=== PATIENT | male | born 1950 | race African-American/Black ===

== ENCOUNTER 2016-05-02 13:48 | Emergency (ER) | payer BC ==
--- NOTE | 2016-05-02 14:18 | ER Document Report ---
ED Medical Screen (RME) - General Chief Complaint: Testicular Swelling Stated Complaint: SWOLLEN TESTICLE Notes: Patient states that he was seen by at primary care physician at [facility] on Thursday because he noticed blood in his urine. Patient states he thinks he may have taken too much Coumadin. Noticed left testicular swelling yesterday, pain is intermittent. States he had blood drawn and sent to [place] yesterday to check his Coumadin level. States he is no longer seeing blood in the urine and came to the hospital to have the testicular swelling checked out. he states that his primary wanted him to have a CAT scan, but could not get scheduled with [facility] until Thursday. PCP tried to get a stat CT scan placed but was unable. Patient is unsure of what the CT scan was for I have greeted and performed a rapid initial assessment of this patient. A comprehensive ED assessment and evaluation of the patient, analysis of test results and completion of the medical decision making process will be conducted by additional ED providers. TRAVEL OUTSIDE OF THE [place] IN LAST 30 DAYS: No - Related Data Allergies/Adverse Reactions: IVP Dye Allergy (Uncoded 05/02/16 14:11) Past Medical History - Social History Chew tobacco use (# tins/day): No Frequency of alcohol use: None Drug Abuse: None Renal/ Medical History: Denies: Hx Peritoneal Dialysis Physical Exam - Vital signs Vitals: Temp Pulse Resp BP Pulse Ox 98.7 F 108 H 16 141/78 H 96 05/02/16 13:54 05/02/16 13:54 05/02/16 13:54 05/02/16 13:54 05/02/16 13:54 - General General appearance: Appears well, Alert In distress: None Course - Vital Signs Vital signs: Temp Pulse Resp BP Pulse Ox 98.7 F 108 H 16 141/78 H 96 05/02/16 13:54 05/02/16 13:54 05/02/16 13:54 05/02/16 13:54 05/02/16 13:54
[2016-05-02] MEDS ORDERED: CIPROFLOXACIN HCL 500 MG TABLET PO ONE (16:03)
[2016-05-02 16:18] LABS: ABSOLUTE LYMPHOCYTES (AUTO) 1.4 10^3/uL (0.5-4.7); ABSOLUTE MONOCYTES (AUTO) 1.7 10^3/uL (0.1-1.4); ABSOLUTE NEUT (AUTO) 8.7 10^3/uL (1.7-8.2); BASOPHILS % (AUTO) 0.4 % (0-2); EOSINOPHILS % (AUTO) 0.2 % (0-6); HEMATOCRIT 42.2 % (37.9-51.0); HGB HCT DIFFERENCE -0.2; LYMPHOCYTES % (AUTO) 11.5 % (13-45); MEAN CORPUSCULAR HEMOGLOBIN 29.2 pg (27.0-33.4); MEAN CORPUSCULAR HGB CONC 33.3 g/dL (32.0-36.0); MEAN CORPUSCULAR VOLUME 88 fl (80-97); MONOCYTES % (AUTO) 14.1 % (3-13); RED BLOOD COUNT 4.81 10^6/uL (4.35-5.55); SEGMENTED NEUTROPHILS % (AUTO) 73.8 % (42-78); WHITE BLOOD COUNT 11.8 10^3/uL (4.0-10.5)
[2016-05-02 16:23] LABS: APPEARANCE,URINE CLOUDY; BILIRUBIN,URINE NEGATIVE (NEGATIVE); GLUCOSE, URINE NEGATIVE (NEGATIVE); KETONES,URINE NEGATIVE (NEGATIVE); LEUKOCYTE ESTERASE,URINE LARGE (NEGATIVE); NITRITE,URINE POSITIVE (NEGATIVE); PROTEIN,URINE 30 mg/dL (NEGATIVE); URINE SPECIFIC GRAVITY 1.023; UROBILINOGEN,URINE NEGATIVE mg/dL (<2.0)
[2016-05-02 16:25] LABS: PROTHROMBIN TIME 16.8 SEC (11.4-15.4)
[2016-05-02 16:42] LABS: ALANINE AMINOTRANSFERASE 30 U/L (21-72); ALKALINE PHOSPHATASE 66 U/L (38-126); ANION GAP 16 (5-19); ASPARTATE AMINO TRANSFERASE 23 U/L (17-59); BLOOD UREA NITROGEN 15 mg/dL (7-20); CALCIUM 9.2 mg/dL (8.4-10.2); CARBON DIOXIDE 21 mmol/L (22-30); CHLORIDE 105 mmol/L (98-107); GLUCOSE 121 mg/dL (75-110); POTASSIUM 4.1 mmol/L (3.6-5.0); SODIUM 141.5 mmol/L (137-145); TOTAL PROTEIN 7.3 g/dL (6.3-8.2)
--- NOTE | 2016-05-02 16:55 | ER Document Report ---
ED General - General Chief Complaint: Testicular Swelling Stated Complaint: SWOLLEN TESTICLE TRAVEL OUTSIDE OF THE [place] IN LAST 30 DAYS: No - HPI Patient complains to provider of: left testicle swelling Notes: Patient coming in for evaluation of testicles swelling. Patient also states having some fevers and chills her last few days. Patient is currently visiting from [facility]. Patient states history of PE and is currently on Coumadin patient states approximately 3-4 days ago started having low blood in his urine call his PCP at [place] and was told to stop taking his Coumadin. Patient did recently go to a local urgent care where has INR checked and found to be subtherapeutic at 0.8. Otherwise patient has no other complaints. Denies any penile discharge denies any lesions on the penile shaft. Denies any trauma to the area - Related Data Allergies/Adverse Reactions: IVP Dye Allergy (Uncoded 05/02/16 14:11) Past Medical History - Social History Smoking Status: Former Smoker Chew tobacco use (# tins/day): No Frequency of alcohol use: None Drug Abuse: None Family History: Reviewed & Not Pertinent Patient has suicidal ideation: No Patient has homicidal ideation: No Renal/ Medical History: Denies: Hx Peritoneal Dialysis Review of Systems - Review of Systems Constitutional: No symptoms reported EENT: No symptoms reported Cardiovascular: No symptoms reported Respiratory: No symptoms reported Gastrointestinal: No symptoms reported Genitourinary: No symptoms reported Male Genitourinary: Testicular pain Musculoskeletal: No symptoms reported Skin: No symptoms reported Hematologic/Lymphatic: No symptoms reported Neurological/Psychological: No symptoms reported -: Yes All other systems reviewed and negative Physical Exam - Vital signs Vitals: Temp Pulse Resp BP Pulse Ox 98.7 F 108 H 16 141/78 H 96 05/02/16 13:54 05/02/16 13:54 05/02/16 13:54 05/02/16 13:54 05/02/16 13:54 Interpretation: Normal - General General appearance: Appears well, Alert - HEENT Head: Normocephalic, Atraumatic Eyes: Normal Pupils: PERRL - Respiratory Respiratory status: No respiratory distress Chest status: Nontender Breath sounds: Normal Chest palpation: Normal - Cardiovascular Rhythm: Regular Heart sounds: Normal auscultation Murmur: No - Abdominal Inspection: Normal Distension: No distension Bowel sounds: Normal Tenderness: Nontender Organomegaly: No organomegaly - Genitourinary Inspection: No: Normal - Patient has enlargement of the left testicle [place] twice the size of the right Tenderness: No: Nontender - Tenderness to palpation of the pack follow-up testicle. Cremasteric reflex: Normal - Back Back: Normal, Nontender - Extremities General upper extremity: Normal inspection, Nontender, Normal color, Normal ROM , Normal temperature General lower extremity: Normal inspection, Nontender, Normal color, Normal ROM , Normal temperature, Normal weight bearing. No: John's sign - Neurological Neuro grossly intact: Yes Cognition: Normal Orientation: AAOx4 [place] Coma Scale Eye Opening: Spontaneous [place] Coma Scale Verbal: Oriented [place] Coma Scale Motor: Obeys Commands [place] Coma Scale Total: 15 Speech: Normal Motor strength normal: LUE, RUE, LLE, RLE Sensory: Normal - Psychological Associated symptoms: Normal affect, Normal mood - Skin Skin Temperature: Warm Skin Moisture: Dry Skin Color: Normal Course - Re-evaluation Re-evalutation: 05/02/16 19:16 Patient's ultrasound and examination is consistent with epididymitis patient's urinalysis does show signs of infection. Patient's Coumadin is still subtherapeutic. Because of the patient traveling and is driving himself back to [facility] a did recommend patient restart his Coumadin I did educate patient a very long discussion that his INR level may elevate due to the antibiotic. Patient will be started on ciprofloxacin. Patient was encouraged to follow-up with his doctor Thursday upon return to repeat his INR. Patient was given a copy of laboratory results and ultrasound results with a CD. Patient urine will be sent for culture. - Vital Signs Vital signs: Temp Pulse Resp BP Pulse Ox 99.5 F 100 18 134/94 H 99 05/02/16 17:17 05/02/16 17:17 05/02/16 17:17 05/02/16 17:17 05/02/16 17:17 - Laboratory Result Diagrams: 05/02/16 15:53 05/02/16 15:53 Laboratory results interpreted by me: 05/02/16 05/02/16 05/02/16 15:53 15:53 15:53 WBC 11.8 H Lymphocytes % 11.5 L Monocytes % 14.1 H Absolute Neutrophils 8.7 H Absolute Monocytes 1.7 H PT 16.8 H Carbon Dioxide 21 L Glucose 121 H Urine Protein Urine Blood Urine Nitrite Ur Leukocyte Esterase 05/02/16 15:53 WBC Lymphocytes % Monocytes % Absolute Neutrophils Absolute Monocytes PT Carbon Dioxide Glucose Urine Protein 30 H Urine Blood MODERATE H Urine Nitrite POSITIVE H Ur Leukocyte Esterase LARGE H Discharge - Discharge Clinical Impression: Epididymitis Condition: Good Disposition: HOME, SELF-CARE Instructions: Epididymitis ([facility]), Warm Packs ([facility]), Ciprofloxacin ([facility]), Oral Narcotic Medication ([facility]) Additional Instructions: Please be aware that starting an antibiotic can affect your Coumadin level. I would recommend starting your Coumadin medication back 3 mg until you follow- up with your physician. Please take antibiotics as prescribed. Drink plenty of water to stay hydrated Prescriptions: Ciprofloxacin HCl [Cipro 500 mg Tablet] 500 mg PO BID #20 tablet Hydrocodone Bit/Acetaminophen [Hydrocodon-Acetaminophen 5-325] 1 each PO Q6 #20 tablet
[2016-05-02 17:21] VITALS: BP 134/94
== END 2016-05-02 17:21 | disposition home or self-care (01) ==
LOC: ER 13:48
DX: N45.1 Epididymitis (principal); R50.9 Fever, unspecified; Z86.711 Personal history of pulmonary embolism; Z91.041 Radiographic dye allergy status
CPT/HCPCS: 36415; 76870; 80053; 81001; 85025; 85610; 87086; 87088; 87186; 93976; 99284